=== PATIENT | male | born 1950 | race Caucasian/White ===

== ENCOUNTER 2022-10-29 15:18 | Emergency (ER) | payer MEDICAID, OTHER ==
[~2022-10-29] VITALS: Ht 160 cm; Wt 79.0 kg
[2022-10-29 15:38] VITALS: BP 149/67
[2022-10-29 16:16] LABS: CLARITY URINE CLOUDY (CLEAR); COLOR URINE YELLOW (YELLOW); KETONES URINE NEGATIVE (NEGATIVE); LEUKOCYTE ESTERASE URINE NEGATIVE (NEGATIVE); NITRITE URINE NEGATIVE (NEGATIVE); OCCULT BLOOD URINE 3+ (NEGATIVE); PROTEIN URINE 1+ (NEGATIVE); SPECIFIC GRAVITY URINE 1.024 (1.005-1.030)
[2022-10-29 17:34] LABS: BASOPHILS % 0.3 % (0.0-2.0); HEMATOCRIT. 41.4 % (42.0-52.0); HEMOGLOBIN. 13.9 g/dL (14.0-18.0); LYMPHOCYTES % 26.4 % (20.0-50.0); MEAN CORPUSCULAR HEMOGLOBIN 30.9 pg (28.0-32.0); MEAN CORPUSCULAR VOLUME 91.8 fL (80.0-94.0); MEAN PLATELET VOLUME 7.4 fl (7.4-10.4); MONOCYTES % 12.2 % (2.0-8.0); NEUTROPHILS % 60.1 % (40.0-76.0); PLATELET 243 x1000/uL (130-400); RED BLOOD CELL COUNT 4.51 mill/uL (4.7-6.1); RED CELL DISTRIBUTION WIDTH 13.6 % (11.6-14.6)
[2022-10-29 17:56] LABS: CHLORIDE 109 mEq/L (98-107)
[2022-10-29 21:29] LABS: CHLORIDE 106 mEq/L (98-107)
== END 2022-10-29 21:55 | disposition home or self-care (01) ==
LOC: ER 15:18
DX: R31.9 Hematuria, unspecified (principal)
CPT/HCPCS: 36415; 80048; 80053; 81003; 85025; 86850; 86900; 99283

== ENCOUNTER 2024-05-02 16:14 | Emergency (ER) | payer MEDICAID ==
[~2024-05-02] VITALS: Ht 167.6 cm; Wt 85.0 kg
[2024-05-02 16:49] VITALS: O2SAT 100
[2024-05-02 17:32] LABS: CHLORIDE 107 mEq/L (98-107); POTASSIUM 4.1 mEq/L (3.5-5.1); SODIUM 141 mEq/L (136-145)
[2024-05-02 17:33] LABS: BASOPHILS % 0.4 % (0.0-2.0); CALCIUM 8.6 mg/dL (8.7-10.4); CARBON DIOXIDE 27 mEq/L (21-32); EOSINOPHILS % 0.6 % (0.0-5.0); HEMATOCRIT. 38.7 % (42.0-52.0); HEMOGLOBIN. 13.1 g/dL (14.0-18.0); LYMPHOCYTES % 19.4 % (20.0-50.0); MEAN CORPUSCULAR HEMOGLOBIN 30.8 pg (28.0-32.0); MEAN CORPUSCULAR HGB CONC 33.8 g/dL (31.0-37.0); MEAN CORPUSCULAR VOLUME 91.3 fL (80.0-94.0); MEAN PLATELET VOLUME 7.5 fl (7.4-10.4); MONOCYTES % 9.6 % (2.0-8.0); PLATELET 243 x1000/uL (130-400); RED BLOOD CELL COUNT 4.24 mill/uL (4.7-6.1); RED CELL DISTRIBUTION WIDTH 13.8 % (11.6-14.6); WHITE BLOOD COUNT 6.8 x1000/uL (4.5-11.0)
[2024-05-02 17:38] LABS: GLUCOSE 114 mg/dL (70-105); UREA NITROGEN BLOOD 16 mg/dL (9-23)
[2024-05-02 17:40] LABS: ALANINE AMINOTRANSFERASE 14 IU/L (10-49); ALBUMIN 4.1 g/dL (3.2-4.8); ASPARTATE AMINOTRANSFERASE 24 IU/L (<34)
[2024-05-02 17:41] LABS: BILIRUBIN DIRECT 0.1 mg/dL (<=3.0); BILIRUBIN TOTAL 0.5 mg/dL (0.1-1.0); PROTEIN TOTAL 6.9 g/dL (6.0-8.3)
[2024-05-02] MEDS: ONDANSETRON 4MG ODT PO ONE (19:16)
[2024-05-02] MEDS: KETOROLAC 30MG/ML VIAL IM ONE (19:16)
[2024-05-02] MEDS: MORPHINE SULFATE 4 MG/ML INJ (FOR IV/IM USE) IM ONE (19:16)
[2024-05-02] MEDS ORDERED: PROT40 MT (21:00)
[2024-05-02] MEDS ORDERED: MAG-55 MT (21:00)
[2024-05-02 21:40] VITALS: BP 147/78; PULSE 89; RESP 16; TEMP 36.72516; O2SAT 100
== END 2024-05-02 21:50 | disposition home or self-care (01) ==
LOC: ER 16:14
DX: K42.9 Umbilical hernia without obstruction or gangrene (principal); E78.00 Pure hypercholesterolemia, unspecified; E03.9 Hypothyroidism, unspecified; Z98.890 Other specified postprocedural states
CPT/HCPCS: 99285; 74176; 80076; 80048; 83605; 83690; 85025; 36415; 96372; Q0162; J1885; J2270